=== PATIENT | female | born 1955 | race Asian ===

== ENCOUNTER 2025-06-12 08:42 | Outpatient (AMB) | payer OTHER, SELFPAY ==
--- OUTSIDE RECORDS SUMMARY | 2025-06-12 08:50 | XMS_ITS | Encounter Summary ---
Author Organization [facility] Address [address] [place] [address] Care Team Providers Care Machine Dyer Name Role Phone Raven Mccarthy MD Primary Care Provider [phone] Reason for Visit * Reason Onset Date Comments Request For Order(s) 05/28/2025 [facility] Order # [id number] Encounter Details Date Type Department Care Team (Late st Contact Info) Description 05/28/2025 Telephone Internal Medicine - [place] [address] [facility] [address] [place] [phone] Soheila Gallardo MA Request For Order(s) ([facility] Order # [id number]/) Social History Tobacco Use Types Packs/Day Years Used Date Smoking Tobacco: Never Smokeless Tobacco: Never Alcohol Use Standard Drinks/Week Comments No 0 (1 standard drink = 0.6 oz pur e alcohol) Food Risk Answer Date Recorded Within the past 12 months we worried whether our food would run out before we got money to buy more. Never true 2025 Within the past 12 months th e food we bought just didn't last and we didn't have money to get more. Never true 2025 Interpersonal Safety Answer Date Record ed Physical Abuse 04/06/2025 Verbal Abuse 04/06/2025 Comments Unknown Sex and Gender Information Value Date Recorded Sex Assigned at Female 02/28/2025 3:49 PM EDT Legal Sex Female 10:31 AM EDT Gender Identity Female 02/28/2025 3:49 PM EDT Sexual Orientation Straight 02/28/2025 3: 49 PM EDT documented as of this encounter Progress Notes * Soheila Gallardo MA - 06/04/2025 1:14 PM EDT Scanned into chart and faxed to [facility] [phone] * Soheila Gallardo MA - 05/28/2025 12:37 PM EDT [facility] Order # [id number] Please Sign & documented in this encounter Plan of Treatment Upcoming Encounters Date Type Department Care Team (Late st Contact Info) Description 07/18/2025 9:45 AM EDT Office Visit Internal Medicine - [place] 175 [facility] [address] [place] [phone] Raven Mccarthy MD 175 [facility] [address] [place] [phone] 08/07/2025 2:10 PM EDT Office Visit [facility] [address] [facility] [address] [place] [phone] Adriana Huber NP 300 [facility] [address] [place] [phone] 09/03/2025 2:00 PM EDT Ancillary Procedure Pulmonolgy - [place] 175 [facility] [address] [place] [phone] 09/03/2025 2:45 PM EDT Office Visit Pulmonolgy - [place] 175 [facility] [address] [place] [phone] Danii Cherry MD [address] [address] 10/01/2025 9:00 AM EST Office Visit [facility] Hematology Oncology [address] [place] [phone] Tamear Locke PA [address] [place] [address] documented as of this encounter Goals Goal Patient Goal Type Associated Problems Recent Progress Patient-Stated? Author LTG - 8 visits General No Susan Caban PT Note: Patient reports subjective decrease in low back pain Patient is able to achieve 10 degrees of lumbar extension Slight trigger point to L lumbar multifidi Slight flexibility restriction to L piriformis Patient is independent and compliant with HEP documented as of this encounter Visit Diagnoses Not on filedocumented in this encounter Additional Health Concerns Assessment Noted Time PHQ-9 Depression Total Score: 1 12/06/19 25 8:36 AM EST documented as of this encounter Care Teams Machine Dyer Relationship Specialty Start Date End Date Raven Mccarthy MD [address] [phone] PCP - General Internal Medicine 11/07/14 documented as of this encounter
--- OUTSIDE RECORDS SUMMARY | 2025-06-12 08:50 | XMS_ITS | Clinical Summary ---
Author Organization [facility] Address [address] [place] [address] Care Team Providers Care Assistant Engineer Name Role Phone Unavailable Primary Care Provider Unavailabl e Source Comments PLEASE NOTE, if this patient is a minor, it may be UNLAWFUL to discuss sensitive information that is contained in these records (such as FAMILY PLANNING, MENTAL HEALTH or SUBSTANCE ABUSE) with the minor patient's parent or other person without the patient's specific authorization.[facility] Allergies No known active allergies Medications amoxicillin (AMOXIL) 500 mg capsuleIndicati ons:Infection of tooth Take 1 Cap by mouth 3 (three) times daily 21 Cap 12/28/2017 Active omeprazole (PRILOSEC) [address] capsule TAKE 1 CAPSULE 30 MINUTES BEFORE MORNING MEAL ONCE A DAY NEEDED Active Active Problems No known active problems Social History Tobacco Use Types Packs/Day Years Used Date Smoking Tobacco: Never Smokeless Tobacco: Never Tobacco Cessation:Counseling Given: Not Answered Social Connections Answer Date Recorded Connectedness 0 08/15/2024 Financial Resource Strain Answer Date R ecorded Financial Resource Strain 0 2023 Stress Answer Date Recorded Stress 0 01/17/2024 Physical Activity Answer Date Recorded Physical Activity 0 01/17/2024 Food Insecurity Answer Date Recorded Food 0 08/23/2024 Transportation Needs Answer Date Record ed Transportation 0 01/17/2024 Housing Stability Answer Date Recorded Housing 0 01/17/2024 Safety and Environment Answer Date Edin rded Safety 0 01/17/2024 Utilities Answer Date Recorded Utilities 0 01/17/2024 Employment Answer Date Recorded Stress 0 08/15/2024 Comments Unknown Sex and Gender Information Value Date Recorded Sex Assigned at Not on file Legal Sex Female 11:36 AM PDT Gender Identity Not on file Sexual Orientation Not on file Last Filed Vital Signs Vital Sign Reading Time Taken Comments Blood Pressure 119/76 01/29/2025 9:14 AM EST Pulse 76 01/29/2025 9:14 AM EST Temperature - - Respiratory Rate - - Oxygen Saturation - - Inhaled Oxygen Concentration - - Weight - - Height - - Body Mass Index - - Plan of Treatment Health Maintenance Due Date Last Done Comments Hepatitis B Screening 1957 Hepatitis C Screening 1955 Medicare Annual Wellness Visit 1975 Imm-DTaP/Tdap/Td (1 - Tdap) 1976 Breast Cancer Screening (Mammogram) 1997 CT Colonography 2002 Colonoscopy 2002 Colorectal Cancer Screening 2002 FIT/gFOBT 2002 Fecal DNA 2002 Flexible Sigmoidoscopy 2002 Imm-Pneumococcal 50+ (1 of 1 - PCV) 2007 Imm-Zoster, Recombinant (1 of 2) 2007 Bone Density Screening 2022 Falls Prevention 2022 [id number] ( - season) 2024 Alcohol and Drug Screen 11/28/2024 Depression Annual Screen 11/28/2024 Dental BW 03/31/2025 03/29/2024, 01/18/2024 Dental Examination 03/31/2025 03/29/2024 Dental Perio Charting 03/31/2025 03/29/2024 Dental Prophy 03/31/2025 03/29/2024 Imm-Influenza (#1) 2025 Hypertension Screening (#1) 01/29/2026 Tobacco Screening 01/29/2026 01/29/2025 Diabetes Screening 01/11/2028 01/11/2025, 0 12/06/2024, 12/06/2024, Additional history exists Lipid Screening 02/02/2029 02/03/2024 Dental FMX/Pano 03/31/2029 03/29/2024, 02/08/2024 Procedures Procedure Name Priority Date/Time Associated Diagnosis Comments INTRAORAL - COMP SERIES OF RADIOGRAPHIC IMAGES Routine 03/29/2024 9:40 AM EDT Encounter for dental examination Retained tooth root Caries PROPHYLAXIS - ADULT Routine 03/29/2024 9 :40 AM EDT Encounter for dental examination Caries COMP ORAL EVALUATION - NEW/ESTABLISHED PATIENT Routine 03/29/2024 9:40 AM EDT Encounter for dental examination Caries from Last 3 Months or Most Recently Relevant to Health Maintenance Insurance [facility]
--- OUTSIDE RECORDS SUMMARY | 2025-06-12 08:50 | XMS_ITS | Data Portability ---
Author Organization [employer] [facility], [facility] Address [address] [place] [address] Care Team Providers Care Housecleaner Floor Name Role Phone [facility] Referring Provider Assessment Encounter Date Assessment Date Assessment LastModified by Organization Details LastModified Time 01/19/2024 01/19/2024 I provided real -time medical direction via phone for this encounter, and was available for additional phone based assistance as needed. I have reviewed and agree with the Assessment and Plan as documented by the Air Commodore. We discussed the diagnostic uncertainty of home visits and the risk associated with this. In this case the patient and I felt this to be an acceptable and reasonable amount of risk given the benefit of avoiding an ED visit. The patient/family given the opportunity to ask questions. Advised needs close follow-up with PCP.. If develops CP/severe SOB/turning blue/severe abdominal pain/uncontrolle d n/v/d or black/bloody emesis or stool/ AMS/ syncope/ hi fever unresponsive to APAP to call 911- verbalized understanding of instructions [email or web address] Not available 01/19/2024 17:11:43 Plan of Treatment Reminders Order Date Submit Date Provider Last Modified By Organization Details Last Modified Time Details Appointments None recorded. Lab BMP, serum or plasma 2023 024 [email or web address] 0 [facility], [address] [place] [address], [id number] 4 17:19:46 rapid SARS CoV 2 Ag, QL IA, respiratory specimen 2023 024 [email or web address] [address], [phone] 4 17:28:55 rapid flu (A+B) 2023 024 [email or web address] [address], [address] 4 17:28:53 urinalysis, dipstick 2022 023 [email or web address] [facility], [address] [place] [address], [id number] 3 16:18:14 Referral None recorded. Procedures None recorded. Surgeries None recorded. Imaging None recorded. Medication Orders ondansetron HCl (PF) 4 mg/2 mL injection solution 2023 024 [email or web address] 0 Not available 4 17:19:46 ondansetron 4 mg disintegrat ing tablet 2023 024 [facility] #[id number], [address] [place], [address], 4 17:19:59 lactated Ringers intravenous solution 2023 024 [email or web address] 0 Not available 4 17:19:46 loperamide 2 mg capsule 2023 024 [email or web address] 0 Not available 4 17:19:46 Patient TargetsNo targets recorded. Patient InstructionsNo instructions recorded. Reason for Referral None Reported. Results Created Date Observation Date Name Description Value Unit Range Abnormal Flag Note LastModifiedBy Organization Detail LastModifiedTime 10/25/20 23 10/25/2023 urina lysis , dipst ick Leukocytes neg Not Available [facility] - [address], [phone] 10/25/2023 16:18:00 10/25/20 23 10/25/2023 urina lysis , dipst ick Nitrite negati ve Not Available Main - [facility] [address], [address] 10/25/2023 16:18:00 10/25/20 23 10/25/2023 urina lysis , dipst ick Protein trace Not Available Main - [facility] [address], [address] 10/25/2023 16:18:00 10/25/20 23 10/25/2023 urina lysis , dipst ick Blood neg Not Available Main - [facility] [address], [address] 10/25/2023 16:18:00 10/25/20 23 10/25/2023 urina lysis , dipst ick Ketone neg Not Available Main - [facility] [address], [address] [place] [address] 10/25/2023 16:18:00 01/19/20 24 01/19/2024 rapid flu (A+B) Flu negati ve Not Available Main - Inst ed [address] [place] [address], [address] [place] [address] 01/19/2024 17:28:33 01/19/20 24 01/19/2024 rapid SARS CoV 2 Ag, QL IA, respi rator y speci men rapid SARS CoV 2 Ag, QL IA, respiratory specimen negati ve Not Available Main - [facility] ed [address] [place] [address], [address] [place] [address] 01/19/2024 17:28:28 01/19/20 24 01/19/2024 BMP, serum or plasm a BUN 14 Not Available Main - [facility] [address], [address] [place] [address] 01/19/2024 17:12:11 01/19/20 24 01/19/2024 BMP, serum or plasm a Ca Ionize d 1.12 Not Available Main - [facility] ed [address] [place] [address], [address] [place] [address] 01/19/2024 17:12:11 01/19/20 24 01/19/2024 BMP, serum or plasm a CI- 97 Not Available Main - [facility] [address], [address] [place] [address] 01/19/2024 17:12:11 01/19/20 24 01/19/2024 BMP, serum or plasm a CRE 1 Not Available Main - [facility] [address], [address] [place] [address] 01/19/2024 17:12:11 01/19/20 24 01/19/2024 BMP, serum or plasm a GLU 97 Not Available Main - [facility] [address], [address] [place] [address] 01/19/2024 17:12:11 01/19/20 24 01/19/2024 BMP, serum or plasm a K+ 3.7 Not Available Main - [facility] [address], [address] [place] [address] 01/19/2024 17:12:11 01/19/20 24 01/19/2024 BMP, serum or plasm a Na+ 134 Not Available Main - [facility] [address], [id number] 01/19/2024 17:12:11 01/19/20 24 01/19/2024 BMP, serum or plasm a tCO2 23 Not Available Main - Ins [address], [address] 01/19/2024 17:12:11 Result Notes None recorded. Medical Equipment None Reported. Allergies No known drug allergies Medications Name Sig Start Date Stop Date Status Note LastModified by Organization Details LastModified Time sulfasalazin e 500 mg tablet TAKE 2 TABLETS BY MOUTH EVERY DAY active Not Available Not Available No t Available loperamide 2 mg capsule Take 1 capsule by oral route. 2023 active Not Available Not Available Not Avai lable meloxicam 15 mg tablet TAKE 1 TABLET BY MOUTH EVERY DAY WITH SUPPER NEEDED FOR 90 DAYS active Not Available Not Available No t Available lactated Ringers intravenous solution Inject 1000 mL by intravenous route. 2023 active Not Available Not Available Not Avai lable leflunomide 20 mg tablet TAKE 1 TABLET BY MOUTH EVERY DAY FOR 90 DAYS active Not Available Not Available No t Available lidocaine 5 % topical patch PLACE 1 PATCH ONTO SKIN EVERY 24 HOURS FOR NO MORE THAN 12 HOURS IN ANY 24 HOUR PERIOD FOR 28 DAYS active Not Available Not Available No t Available valsartan 320 mg tablet TAKE 1 TABLET BY MOUTH EVERY DAY active Not Available Not Available No t Available omeprazole 20 mg capsule,aminta yed release TAKE 1 CAPSULE 30 MINUTES BEFORE MORNING MEAL ONCE A DAY NEEDED active Not Available Not Available No t Available ondansetron 4 mg disintegrati ng tablet Place 1 tablet every 8 hours by translingua l route as needed. 2023 active Not Available Not Available Not Avai lable calcium 600 mg (as carbonate)-v itamin D3 10 mcg (400 unit) tablet TAKE 1 TABLET BY MOUTH TWICE A DAY active Not Available Not Available No t Available ondansetron HCl (PF) 4 mg/2 mL injection solution Take 4 mg by injection route. 2023 active Not Available Not Available Not Avai lable Vitals Date Recorded Heart rate Body height Provider Name and Address Organization Details Last Updated DateTime 01/19/2024 62 /min 162.56 cm Jessica Staton MD [address] [place] [address],[address], [place], [address], [place] - [employer] [facility] 01/19/2024 17:08:47 Date Recorded Body temperature Respiratory rate Oxygen saturation Oxygen saturation in Arterial blood by Pulse oximetry Systolic And Diastolic Provider Name and Address Organization Details Last Updated DateTime 4 98.8 [degF] 22 /min 94 % 94 % 104/58 mm[Hg] Not Available [facility] 4 15:04:30 Date Recorded Respiratory rate Oxygen saturation Oxygen saturation in Arterial blood by Pulse oximetry Body weight Heart rate Body height Body temperature Systolic And Diastolic Provider Name and Address Organization Details Last Updated DateTime 3 18 /min 97 % 97 % 61920.9 6 g 69 /min 162.56 cm 97.6 [degF] 117/79 mm[Hg] Not Available [facility] 3 15:34:37 Social History None recorded. Functional Status None recorded. Mental Status None recorded. Family History Nothing Reported. Medical History No medical history recorded. Gynecological HistoryNo gynecological history recorded. Obstetrics History GPAL:G 0 P 0 0 0 0 Past Encounters Encounter ID Performer Location Encounter Start Date Encounter Closed Date Diagnosis/Indication Diagnosis SNOMED-CT Code Diagnosis ICD10 Code Diagnosis Note [id number] Angela Jones MD [facility] - [address] [address] 10/25/2023 15:34:33 10/25/2023 22:41:48 Viral syndrome 497950886 B34.9 Evaluation in the field was performed by my lead generation specialist colleague, as noted above, I provided real-time direction and supervisio n for this visit. 68yo F recently evaluated in ED for report of rhinorrhea , malaise, and fevers with negative work up (per family report diagnosed w/ viral URI) seen today for concern of facial swelling. Pt endorsing ongoing rhinorrhea , malaise, and new diarrhea and single episode of vomiting. On lead generation specialist eval VS all wnl, exam w/o evidence of facial swelling, no sinus TTP, clear lungs, no abd TTP. Denies new meds, other symptoms c/w anaphylaxi s. Symptom constellat ion most c/w viral illness, possible mild periorbita l edema not noticeable by lead generation specialist iso mild conjunctiv itis. Urine dip w/ trace protein not c/w nephrotic syndrome. No facial TTP to suggest serious bacterial infection sinus or adjacent structures . Family declines POC testing for COVID, flu given just done in ED. Given pt declines nausea no symptomati c relief given. Counseled on expected course of viral illness and encouraged to seek medical attention if sx not improving or worsening. We discussed the diagnostic uncertaint y of home visits and the risk associated with this. In this case, the patient and I felt this to be an acceptable and reasonable amount of risk given the benefit of avoiding an ED visit. We discussed the need to seek care urgently/e mergently in the setting of any new or worsening serious symptoms, shortness of breath, cough, chest pain, fever. Jessica Staton MD [facility] - [facility] [address] [place] [address] 01/19/2024 15:04:21 01/19/2024 21:37:34 Nausea, vomiting and diarrhea 7171635 R11.2 R19.7 npo since yesterday- patient on Bactrim 3 times a week for 90 days since November 08 2023-she reports it is for her bones unsure if she had prior osteo patient is not knowledgea ble about PMH and I do not have access to prior records.No known sick contacts. This could be viral gastroente ritis. Labs look good. We do not have the ability to do stool specimens and the concern with diarrhea on antibiotic s is the developmen t of C. difficile so cannot repeat doses of loperamide until testing is done to avoid developing megacolon/ bowel obstructio n-advised need for close follow-up with PCP-to call this afternoon or tomorrow.. They verbalized understand ing Patient feeling better after IV fluids and Zofran IV-Rx for Zofran sent to the pharmacy. Now drinking apple juice and h20 -advised clear liquids and to stay hydrated for 24 hours and then begin brat diet/ medic reviewed diet Offered Tylenol for her back pain. Patient and family declined stating they have some at home and they can take their own. Patient has been taking ibuprofen, I suggested while ill she should avoid the ibuprofen as it could cause GI upset. Patient is on Leflunomid e -as anti-infla mmatory was ketorolac is contraindi cated. Health Concerns Section Related Observation LastModified by Organization Detai ls LastModified Time None Recorded Concern Status LastModified by Organization Details LastModified Time None Recorded Advance Directives Directive None Recorded Payers Insurance Date Sequence Insurance Name Policy Number Policy Avilez Covered Member ID Avilez Member ID Guarantor Name 01/19/2024 1 [facility] - DOS ON OR AFTER 2023 - DUAL ELIGIBLE - CARE HOME OPTIONS AND ONE CARE (MEDICARE REPLACEMENT/ADV ANTAGE - HMO) Tian Weller [id number] Tian Juarez Weller Notes Date Note Type Note Provider Name and Address Organization Details Recorded Time 10/25/2023 text/html [facility] Nursing Assessment: Reason For Request: Pt daughter calling to report low BP + not feeling well>mbr went to the ED and tested everything was normal>daughter is noticing some face swelling and is unsure if her bp is the cause Chief Complaints: Edema, Weakness/Lethargy Allergies: No Known Comments: Member's daughter called to report increased fatigue and new facial swelling. Member identified via name/. Member went to ER yesterday for fatigue and low BP. There they had all the tests and didn't find anything wrong and sent her home. Face swelling started on Tuesday, got better and then worse again. Daughter reports she can hardly see member's eyes. Member denies SOB, trouble breathing, and trouble swallowing. Denies swollen/itchy tongue. Eating and drinking as usual. Symptoms include headache and itchy eyes. No recent new medications or food. According to member- ER did not notice facial swelling. Denies chest pain. Took BP- currently 103/68. HR 77. Denies dizziness. Member is Latvian speaking- some ethiopian but will need an dry finisher. Daughter can be called during the visit. Reviewed warning signs and reasons to call 911 with member and daughter - both verbalize understanding. Shaan Macario RN .................. .................. .................. .................. .................. .................. .................. ............... Air Commodore Note From Lydia Rivera: Sent to a call for a pt complaining facial swelling, fatigue and hypotension. SC8 arrives on scene, pt is alert and oriented, airway is patent. Pt speaks Latvian and her daughter serves as apprentice embalmer via phone. Pt complains of fox, itchy eyes, runny nose with clear mucus, slight productive cough with white mucus, body pain, and fatigue x 2-3 days. Pt also complains of facial swelling since yesterday, one episode of vomit, and 3 episodes of diarrhea today. Pt denies dizziness, sinus pain, sore throat, nausea, blood in vomit, cp, sob, abd pain, fever, or loc. Pt was evaluated in ED yesterday and diagnosed with upper respiratory infection. Pt states she had a neg Covid and Flu test yesterday in ED. BP:117/79, P:69, RR:18, SpO2:97% RA, T:97.6; Head: no sinus tenderness, slight facial edema noted; Lung sounds: clear bilaterally; Abdomen: soft, non-tender, no distention; Back: unremarkable; Extremities: unremarkable; Skin: pink, warm, dry; [facility] consulted and orders urine dip. Urine sample obtained; urine dip: results uploaded to [facility]; Pt and family advised that pt should rest, stay hydrated, and continue symptomatic treatment. Pt advised to contact [facility] if symptoms worsen. Red flags discussed. Pt has no further questions. .................. .................. .................. .................. .................. .................. .................. ............... Disposition: Fulfilled Angela Jones MD [address] [facility],[address], [place], [address], [employer] 10/25/2023 17:29:50 01/19/2024 text/html [facility] Nurse Triage Notes (Nanda Dotson): Reason For Request: Pt's FIBERGLASSER reporting fatigue/tiredness> n/v/d>symptoms going on 5 days. Chief Complaints: Weakness/Lethargy, Nausea/Vomiting PMH: Hypertension Allergies: No Known Comments: Increased fatigue over the last 2 days. Reported member having vomiting and diarrhea that started last night. Member having dizziness and headaches. Member c/o back pain. History of chronic back pain but is worse that usual. .................. .................. .................. .................. .................. .................. .................. ............... Air [employer]ore Note From Jerrod Miller: Dispatched to above address for flu like symptoms. On arrival patient 68 y/o F, met SC8 at the door, AOX4, airway patent, speaking in full sentences, good color, in no apparent distress. Patient mostly Latvian speaking, family on phone to translate. Patient reports malaise and general fatigue for 2-3 days, began having nausea vomiting diarrhea and chills last night, denies blood in stool or vomit, reports R sided crampy abdominal pain, general malaise and fatigue. Patients vital signs checked. Orthostatic vitals checked. POC Flu and Covid-19 test checked both negative. Secondary assessment, pupils PERRL, airway patent, no JVD, trachea midline, equal chest rise and fall, Rales auscultated in R lower lobe otherwise clear lung sounds, abdomen soft non tender, no signs of trauma, good radial pulse, skin pink warm and dry. [facility] contacted spoke with Dr. Staton, advised of current situation, advised check chem 8, administer loperamide Zofran and 1L lactated ringers. IV access established, 18g R AC, blood draw preformed from IV site, Chem 8 checked, numbers per attached photo. Patient started on lactated ringers infusion, administered 4mg Zofran IV and 2mg Loperamide PO. Consulted with [facility], advised patient education and red flag warnings, follow up with PCP as soon as possible. Patient advised of red flags, advised to increase fluid intake, clear fluids for 24hrs and BRAT diet to follow. Patient reports reduction in nausea. Patient has no additional questions or concerns at this time, reports she will call PCP today. SC8 clear. EOR. .................. .................. .................. .................. .................. .................. .................. ............... Disposition: FulfilledSEGMD: Patient reports 2-3 bouts of nausea vomiting and diarrhea with crampy right-sided abdominal pain but without hematemesis, melena or hematochezia. She has had no fever, but did have chills. She has been on Bactrim 3 times a week since November 08, 2023. No sick contacts. She has been taking ibuprofen for her low back pain she has not had any Tylenol but they do have it in the house. She feels lightheaded when she stands and c/o myalgias, fatigue and malaise. No focal neuro signs. She denies any cough cold URI symptoms. She denies any UTI symptoms. Jessica Staton MD [address] [facility],[address], [place], [address], [employer] 01/19/2024 17:30:15 OBGyn Episode No OBEpisode recorded.
--- NOTE | 2025-06-12 09:23 | A.OFFVIS_ITS ---
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 She was taking gabapentin twice a day for symptomatic relief of pain related to neuropathy and stated that it was helping without any side-effects or complications. She was happy. [facility] Medical History (Updated 06/12/25 @ 09:25 by Leoncio Ren MD) HLD (hyperlipidemia) Asthma Hypertension Paresthesia of skin Rheumatoid arthritis Peripheral neuropathy Review of Systems Const Details: Constitutional:?No fever, chills, fatigue, weight loss, or night sweats. HEENT:?No headache, vision changes, hearing loss, nasal congestion, sore throat. Neurological:?No dizziness, syncope, seizures, numbness, tingling, weakness, tremors, memory loss. Psychiatric:?No anxiety, depression, mood swings, sleep disturbance, or hallucinations. Endocrine:?No heat/cold intolerance, polydipsia, polyuria, or hair/skin changes. Hematologic/Lymphatic:?No easy bruising, bleeding, or lymphadenopathy. Integumentary (Skin):?No rash, lesions, itching, or color changes. ? Physical Exam Neuro Other: Mental Status: Alert and oriented to person, place, and time. Normal attention. Normal spontaneous speech, fluency, and comprehension. No obvious issues with mood and memory. Affect is appropriate. Cranial Nerves: CN II: Visual giron full to confrontation, visual acuity intact. CN III, IV, : Pupils equal, round, reactive to light and accommodation. Extraocular movements are normal. CN V: Facial sensation is normal. CN VII: Facial movements symmetrical. CN VIII: Hearing intact to bedside conversation is normal. CN IX, X: Palate elevates symmetrically. CN XI: Shoulder shrug and head turn symmetrical. CN XII: Tongue midline without atrophy or fasciculations. Extrapyramidal: Full facial expressions and blinking. No rigidity. Movements are appropriate with no tremor or abnormality. Speech: Normal; no dysarthria or tremor. Assessment & Plan Assessment & Plan (1) Peripheral neuropathy: Comment: Meds tried: gabapentin NCV/EMG LE Moderately severe axonal sensory and motor peripheral neuropathy. 05/21/24. Code(s): G62.9 - Polyneuropathy, unspecified Category: Medical Qualifiers: Peripheral neuropathy type: polyneuropathy associated with underlying disease Qualified Code(s): G63 - Polyneuropathy in diseases classified elsewhere Plan Impression: Peripheral neuropathy with underlying rheumatoid arthritis Recommendations: Gabapentin 300 mg once or twice a day for symptomatic relief of pain related to neuropathy. Medications: New gabapentin 300 mg PO BID 180 caps 1RF Coding Level of Care Code Tele Est Pt Level 4 (09829) Diagnoses Polyneuropathy associated with underlying disease G63 Peripheral neuropathy type: polyneuropathy associated with underlying disease
== END 2025-06-12 09:31 | disposition home or self-care (01) ==
LOC: HO.HSM 08:43
PROVIDERS: PCP Internal Medicine; Visit Provider Psychiatry & Neurology Neurology
DX: G62.9 Polyneuropathy, unspecified (principal)
CPT/HCPCS: 99214

== ENCOUNTER → 2025-06-12 08:42 | Outpatient (BNVA) | payer OTHER, SELFPAY | PROVIDERS: PCP Internal Medicine; Visit Provider Psychiatry & Neurology Neurology | DX: G62.9 Polyneuropathy, unspecified (principal); M06.9 Rheumatoid arthritis, unspecified | CPT/HCPCS: 99212 ==

== ENCOUNTER 2025-09-24 09:04 | Outpatient (REF) | payer OTHER, SELFPAY ==
--- NOTE | 2025-09-24 | EMG_ITS ---
Chief complaint: Left hand pain and numbness Reason for referral:M79.642 Left hand pain, Rule out Carpal tunnel syndrome Referred by: Dami Camacho MD Procedure done: NCS and EMG of left upper extremity Left median and ulnar motor studies were performed. Left median and ulnar mixed sensory studies, median and lateral antecubital brachial sensory studies and radial sensory study was performed. EMG needle examination was performed. Findings: Left median motor distal latencies was moderately prolonged with conduction velocity in 30s. Amplitude was intact. Left median mixed sensory response was absent. Ulnar mixed sensory study revealed slightly delayed distal latencies and borderline conduction velocity. Ulnar motor study was normal. Other sensory studies were normal. 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 There was also indication of an underlying probably axonal peripheral neuropathy [place] [id number] [facility]
--- NOTE | 2025-09-24 | EMG_ITS ---
Chief complaint:?M79.642 Left hand pain Reason for referral: Left hand and wrist pain/numbness Referred by:?Dami Camacho MD Procedure done: Left upper extremity Left median and ulnar motor studies were performed. Left median and ulnar mixed sensory studies were performed. Left radial sensory and median and lateral antecubital brachial sensory studies were performed and paraspinals were tested with a needle. Findings: Left median motor distal latencies was moderately prolonged with mildly slow conduction velocity. Left median mixed response was absent. Otherwise no significant abnormality was noted. Impression: [id number] left median neuropathy across carpal tunnel [place] [id number] 1 extremity MTDD
--- OUTSIDE RECORDS SUMMARY | 2025-09-24 10:10 | XMS_ITS | Encounter Summary ---
Author Organization [facility] Address [address] [place] [address] Care Team Providers Care Sales Project Coordinator Name Role Phone Raven Mccarthy MD Primary Care Provider [phone] Reason for Visit * Reason Onset Date Comments DME 09/23/2025 Encounter Details Date Type Department Care Team (Late st Contact Info) Description 09/23/2025 Telephone Internal Medicine [facility] [address] [facility] [address] [place] [phone] Raven Mccarthy MD [address] [place] [phone] Social History Tobacco Use Types Packs/Day Years [...] Safety Answer Date Record ed Physical Abuse Unrecognized value 08/05/2025 Verbal Abuse Unrecognized value 08/05/2025 Comments No Sex and Gender Information Value Date Recorded Sex Assigned at Female 02/28/2025 3:49 PM EDT Legal Sex Female 10:31 AM EDT Gender Identity Female 02/28/2025 3:49 PM EDT Sexual Orientation Straight 02/28/2025 3: 49 PM EDT documented as of this encounter Progress Notes * Марина Solomon - 09/23/2025 9:59 AM EDT Name of Product: shower chair Specific information about product # Needed 1 Reason patient is asking for this supply? Replacement, Frequent falls Have you received this supply before? If yes , when?: yes. Has Patient been seen in the last 6 months yes If NO, Please book appt before DME can be ordered Have you discussed the need for this supply with a provider at a recent visit? no If yes, with who and when? No Child Life Appt necessary When completed, SHIPPING ADDRESS: [address] [place] [address] Have you told the patient it will take 7-10 days for completion of this request? Yes documented in this encounter Plan of Treatment Upcoming Encounters Date Type Department Care Team (Late st Contact Info) Description 10/01/2025 9:00 AM EST Office Visit [facility] Hematology Oncology [address] [place] [phone] Tamera Locke PA [address] [place] [address] 10/29/2025 9:45 AM EST Office Visit Internal Medicine [facility] [address] [phone] Raven Mccarthy MD [address] [place] [phone] 03/05/2026 8:45 AM EDT Office Visit Pulmonology - [facility] [address] [phone] Danii Cherry MD [address] [place] [phone] documented as of this encounter Goals Goal [...] documented as of this encounter Care Teams Sales Project Coordinator Relationship Specialty Start Date End Date Raven Mccarthy MD [address] [place] [phone] PCP - General Internal Medicine 11/07/14 documented as of this encounter
--- OUTSIDE RECORDS SUMMARY | 2025-09-24 10:11 | XMS_ITS | Clinical Summary ---
Author Organization [facility] Address [address] [place] [address] Care Team Providers Care Photographic Editor Name Role Phone Gay Mccarthy MD Primary Care Provider [phone] Allergies No known active allergies Medications omeprazole (PriLOSEC) [address] capsule Take 1 capsule (20 mg total) by mouth 1 (one) time each day. 4 Active fluticasone-salm eterol (Wixela Inhub) 250-50 mcg/dose diskus inhaler Inhale 1 puff by mouth 2 (two) times a day. Rinse mouth with water after use to reduce aftertaste and incidence of candidiasis. Do not swallow. 3 each 3 5 026 Active albuterol HFA (PROAIR HFA ; PROVENTIL HFA ; VENTOLIN HFA) 90 mcg/actuation inhaler Inhale 2 puffs by mouth every 6 (six) hours if needed for wheezing or shortness of breath. 3 each 3 5 026 Active glipiZIDE (Glucotrol XL) 5 mg 24 hr tablet Take 1 tablet (5 mg total) by mouth 1 (one) time each day. Do not crush, chew, or split. 90 each 3 5 Active atorvastatin (LIPITOR) 40 mg tablet TAKE 1 TABLET BY MOUTH EVERY DAY 90 tablet 1 5 Active blood-glucose meter miscIndications: Type 2 diabetes mellitus without complication, without long-term current use of insulin ([facility] V24, [facility] V28) Use daily or as directed for monitoring of diabetes. 1 each 5 026 Active ketotifen fumarate (Zaditor) 0.035 % ophthalmic solution Administer 1 drop into both eyes 2 (two) times a day. 10 mL 1 5 Active magnesium oxide 400 mg magnesium capsule Take 1 capsule by mouth at bedtime. 90 capsule 3 5 Active predniSONE (DELTASONE) 10 mg tablet Take 1 tablet (10 mg total) by mouth 1 (one) time each day. Take 1 Tablet by mouth daily. May take second tablet as needed for pain 5 Active blood-glucose meter kit Use daily or as directed for monitoring of diabetes. 1 each 5 Active glucose blood test strip Use as instructed 100 each 5 Active lancets lancets Check blood sugar 4 times a day or as directed. 200 each 5 Active ferrous sulfate 325 mg (65 mg iron) EC tablet Take 1 tablet (325 mg total) by mouth every other day. Do not crush, chew, or split. 45 each 5 Active gabapentin (NEURONTIN) 300 mg capsule Take 1 capsule (300 mg total) by mouth 2 (two) times a day. 5 Active fluticasone-salm eterol (Wixela Inhub) 250-50 mcg/dose diskus inhaler Inhale 1 puff by mouth 2 (two) times a day. Rinse mouth with water after use to reduce aftertaste and incidence of candidiasis. Do not swallow. 1 each 12 5 026 Active aspirin 81 mg EC tablet TAKE 1 TABLET BY MOUTH EVERY DAY 90 tablet 2 5 Active calcium carbonate-vitami n D 600 mg-10 mcg (400 unit) per tablet TAKE 1 TABLET BY MOUTH TWICE A DAY 180 tablet 4 5 Active loratadine (CLARITIN) 10 mg tablet TAKE 1 TABLET BY MOUTH 1 TIME EACH DAY. 90 tablet 1 5 Active polyethylene glycol (Golytely) 236-22.74-6.74 -5.86 gram solution Take 4L by mouth once for one dose. May substitue any PEG. Starting at 2PM the day before your procedure drink 1 8oz glasses at your own pace until you complete half of the gallon. Finish 2nd half of the gallon at 8PM. 4000 mL 5 Active bisacodyL (DULCOLAX) 5 mg EC tablet Take 2 tablets by mouth right before beginning bowel prep. See instructions provided by the office 2 tablet 5 Active nutritional supplement-fiber liquidIndication s:Type 2 diabetes mellitus without complication, without long-term current use of insulin (CMS/HCC V24, CMS/HCC V28) Take 1 each by mouth 2 (two) times a day. 1500 mL 11 5 Active valsartan (DIOVAN) 80 mg tabletIndication s:Benign essential hypertension Take 1 tablet (80 mg total) by mouth 1 (one) time each day. 90 tablet 2 5 Active fluticasone-salm eterol (Wixela Inhub) 250-50 mcg/dose diskus inhaler Inhale 1 puff by mouth 2 (two) times a day. Rinse mouth with water after use to reduce aftertaste and incidence of candidiasis. Do not swallow. 3 each 3 5 Active albuterol HFA (Ventolin HFA) 90 mcg/actuation inhaler Inhale 2 puffs by mouth every 6 (six) hours if needed for wheezing. 3 each 3 5 026 Active Active Problems Problem Noted Date Diagnosed Date Prepatellar bursitis, left knee 03/01/2025 Cellulitis of left knee 02/28/2025 Lumbar disc herniation with radiculopathy 2024 Assessment & Plan (04/01/2025 1:59 PM EDT): I discussed the MRI finding with Ms. Espinosa and she feels that the back pain that was radiating down the back of her leg is about the same but right now her walking and activity tolerance are significantly influenced by her left knee surgery. She has had only 1 PT visit since her knee replacement and would like to continue to see how much that improves but there is no before having to decide about more surgery. I agree since there is no left foot weakness. She can follow-up with us to discuss it further after she has pleated the rehab for her left knee replacement and can reassess the residual symptoms. She continues to wear a right AFO for pre-existing dorsiflexion weakness. She feels that 1 leg is shorter than the other which is not apparent when she is wearing the AFO and shoes however, at home when the AFO is off, she feels unbalanced and asked for a lift for her flip-flop. Through the park interpreter, I explained that that is not possible and if necessary, she should wear her shoes indoors. Assessment & Plan (01/23/2025 3:40 PM EST): Ms. Espinosa describes 2 months of severe pain down the back of the left leg. She says the back pain started before that. She admits to ongoing right sided dorsiflexion weakness since 2019. Her AFO brace broke so I will give her a prescription for a new one. Her MRI of the lumbar spine from [facility] on 01/01/25 reveals a large left-sided disc herniation with caudal migration compressing the left S1 nerve root. We talked about surgery for this but she would like to see if it gets better with time. I gave her a prescription for physical therapy. We talked about steroids but she is diabetic and so she will continue on Celebrex and gabapentin. She will follow-up with Dr. Lyle in 4 to 6 weeks. Benign essential hypertension 10/09/2024 Assessment & Plan (08/07/2025 3:20 PM EDT): Her blood pressure is elevated during today's exam with a wrist systolic of 150. There has been some confusion as the patient discontinued her valsartan as she thought her PCP asked her to do this. I reviewed her most recent PCP note from 2 weeks ago and it states that she is to continue on valsartan. Subsequently, she will restart her valsartan 80 mg. Goal blood pressure less than 130/80. Orders: valsartan (DIOVAN) 80 mg tablet; Take 1 tablet (80 mg total) by mouth 1 (one) time each day. Assessment & Plan (02/01/2025 3:18 PM EST): Well-controlled during today's exam. She will continue on her current medications. Her blood pressure is actually a little bit soft. We can consider decreasing her metoprolol after her stress test to see if this does help with her fatigue. NSTEMI (non-ST elevated myoc ardial infarction) ([facility] V24, [facility] V28) 06/13/2024 Assessment & Plan (08/07/2025 3:20 PM EDT): Patient denies any symptoms reminiscent to those prior to her NSTEMI. She has not noticed a decline in her activity tolerance over the past 6 months. She continues to feel well. She will continue on statin and aspirin therapy. Instructed to call 911 or go to the emergency room should the patient begin to experience chest pain or pressure lasting greater than 10 minutes does not resolve with rest. CAD (coronary artery disease) 06/13/2024 Overview (09/10/2024): Last Assessment & Plan: Denies any anginal symptoms. States compliance with her medications. She will continue on aspirin, Brilinta, statin and beta-abdon. Instructed to call 911 or go to the emergency room should the patient begin to experience chest pain or pressure lasting greater than 10 minutes does not resolve with rest. We will update echocardiogram. Patient does complain of episodes of lower extremity edema however appears to be euvolemic upon exam today. Her PCP trialed her on Lasix with good effect. We discussed continuing this on an as-needed basis for swelling and weight gain. I have asked the patient to call our office should she feel she is taking this regularly in order to control symptoms outlined above. I have given her a slip to have BMP drawn. Assessment & Plan (02/01/2025 3:18 PM EST): Patient endorses significant fatigue and breathlessness with minimal exertion which has significantly worsened over the past 3 months. She denies any overt chest pain, left arm pain, jaw pain, nausea or diaphoresis. She does state compliance with her medications including aspirin, Brilinta, metoprolol and statin therapy. I have ordered nuclear stress testing to further evaluate for any further evidence of ischemia. This will be likely a pharmacologic nuclear stress test as the patient is ambulating today with a cane. Instructed to call 911 or go to the emergency room should the patient begin to experience chest pain or pressure lasting greater than 10 minutes does not resolve with rest. Orders: Nuclear stress test with myocardial perfusion; Future Abnormal TSH 03/01/2024 Hyperlipidemia 02/14/2018 Overview (09/10/2024): Last Assessment & Plan: Last fasting lipid profile revealed an LDL of 44. This is at goal of 55 in the setting of coronary artery disease continue current dose of statin and be mindful of dietary fat intake. Assessment & Plan (08/07/2025 3:20 PM EDT): Continue current dose of Lipitor 40 mg to be mindful of dietary fat intake. Goal LDL less than 70 however ideally closer to 55. Can consider updating fasting lipid profile prior to her next in office visit. Assessment & Plan (02/01/2025 3:18 PM EST): Continue current dose of statin therapy. LDL at goal of less than 70. Assessment & Plan (12/07/2024 9:28 PM EST): Orders: CBC and differential; Future Iron and TIBC; Future Ferritin; Future Thyroid stimulating hormone with reflex to free t4 and free t3; Future Hemoglobin A1c; Future Other spondylosis with myelopathy, cervical [place] on 02/14/2018 Overview (09/10/2024): Comments: F/B Dr. Coates Prediabetes 10/29/2017 Assessment & Plan (12/07/2024 9:28 PM EST): Orders: CBC and differential; Future Iron and TIBC; Future Ferritin; Future Thyroid stimulating hormone with reflex to free t4 and free t3; Future Hemoglobin A1c; Future Osteopenia 10/25/2017 Rheumatoid arthritis ([facility] V24, [facility] V28) 10/14/2017 Asthma 05/04/2017 Peripheral neuropathy 01/13/2016 Varicose veins of legs 02/21/2014 GERD (gastroesophageal reflux disease) 3 Resolved Problems Problem Noted Date Diagnosed Date Resolved Date Acute hypoxemic respiratory failure ([facility] V24, [facility] V28) 04/05/2025 2025 Encounters Date Type Department Care Team Description 09/23/2025 Telephone Internal Medicine - [place] [address] [facility] [address] [place] [phone] Gay Mccarthy MD 09/03/2025 2:45 PM EDT Office Visit Pulmonology - [place] [address] [facility] [address] [place] [phone] Danii Cherry MD Moderate persistent asthma, unspecified whether complicated (Primary Dx); ILD (interstitial lung disease) ([facility] V24, [facility] V28); Chronic cough 09/03/2025 2:00 PM EDT Ancillary Procedure Pulmonology - [place] [address] [facility] [address] [place] [phone] ILD (interstitial lung disease) ([facility] V24, [facility] V28) 08/07/2025 2:10 PM EDT Office Visit [facility] [address] [facility] [address] [place] [phone] Adriana Huber NP Benign essential hypertension (Primary Dx); NSTEMI (non-ST elevated myocardial infarction) ([facility] V24, [facility] V28); Hyperlipidemia, unspecified hyperlipidemia type 08/05/2025 1:21 PM EDT Anesthesia Event [facility] [address] [place] [phone] Danielle Miller MD 08/05/2025 12:19 PM EDT - 08/05/2025 11:59 PM EDT Hospital Encounter [facility] [address] [place] [phone] Jesse Caruso MD Hayes, Brett L, CRNA Freeman, Katharine O, MD Iron deficiency anemia, unspecified iron deficiency anemia type Discharge Disposition: Home or Self Care 07/18/2025 9:45 AM EDT Office Visit Internal Medicine [address] [place] [address] Gay Mccarthy MD Hyperlipidemia, unspecified hyperlipidemia type (Primary Dx); Rheumatoid arthritis, involving unspecified site, unspecified whether rheumatoid factor present ([facility] V24, [facility] V28); Type 2 diabetes mellitus without complication, without long-term current use of insulin ([facility] V24, [facility] V28) 07/18/2025 Telephone Internal Medicine [facility] [address] [facility] [address] [place] [address] Gay Mccarthy MD from Last 3 Months Immunizations Immunization Administration Dates Next Due Influenza Quadravalent, 0.5m l (Fluzone High-dose) 65yo and older 08/23/2022 PPD Test 04/25/2018,01/26/2017,11/11/2015 Surgical History Surgery Date Site/Laterality Comments I&D ABCESS SIMPLE OR SINGLE TOTAL KNEE ARTHROPLASTY PATIENT DENIES LUMBAR SPINE SURGERY N/A SCREWS PLACED PER PATIENT COLONOSCOPY Medical History Medical History Date Comments Asthma 05/04/2017 DX:Asthma Benign essential hypertension 11/15/2017 DX :Benign essential hypertension GERD (gastroesophageal reflux disease) 3 DX:GERD (gastroesophageal reflux disease) Hyperlipidemia 02/14/2018 DX:Hyperlipidemi a Osteopenia 10/25/2017 DX:Osteopenia Other spondylosis with myelo emiliana, cervical region 02/14/2018 DX:Other spondylosis with myelopathy, cervical region; COMMENT: Comments: F/B Dr. Coates Peripheral neuropathy 01/13/2016 DX:Periphe ral neuropathy Prediabetes 10/29/2017 DX:Prediabetes Rheumatoid arthritis ([facility]/ [facility] V24, [facility] V28) 10/14/2017 DX:Rheumatoid arthritis (HCC ) Varicose veins 02/21/2014 DX:Varicose vein s CHF (congestive heart failur e) ([facility] V24, [facility] V28) Diabetes mellitus ([facility] V 24, [facility] V28) Social History Tobacco Use Types Packs/Day Years Used Date Smoking Tobacco: Never Smokeless Tobacco: Never Tobacco Cessation:Counseling Given: Not Answered Alcohol Use Standard Drinks/Week Comments No 0 [...] Orientation Straight 02/28/2025 3: 49 PM EDT Obstetrics History Last Filed Vital Signs Vital Sign Reading Time Taken Comments Blood Pressure 104/60 09/03/2025 2:13 PM EDT Pulse 73 09/03/2025 2:13 PM EDT Temperature 35.7 C (96.2 F) 09/03/2025 2:13 PM EDT Respiratory Rate 14 09/03/2025 2:13 PM EDT Oxygen Saturation 93% 09/03/2025 2:13 PM EDT Inhaled Oxygen Concentration - - Weight 63 kg (138 lb 12.8 oz) 09/03/2025 2:13 PM EDT Height 162.6 cm (5' 4 ) 09/03/2025 2:13 PM EDT Body Mass Index 23.82 09/03/2025 2:13 PM EDT Plan of Treatment Upcoming Encounters Date Type Department Care Team (Late st Contact Info) Description 10/01/2025 9:00 AM EST Office Visit [facility] [address] [place] [phone] Tamera Locke PA [address] [place] [address] 10/29/2025 9:45 AM EST Office Visit Internal Medicine - [place] [address] [facility] [address] [place] [phone] Gay Mccarthy MD [address] [place] [phone] 03/05/2026 8:45 AM EDT Office Visit Pulmonology - [place] [address] [facility] [address] [place] [phone] Danii Cherry MD [address] [place] [phone] Health Maintenance Due Date Last Done Comments COVID-19 Vaccine (#1) 1962 Diabetes: Annual Foot Exam 1967 Diabetes: Annual Retina Eye Exam 1967 DTaP,Tdap,and Td Vaccines (1 - Tdap) 1976 Pneumococcal Vaccine: 50+ Years (1 of 2 - PCV) 1976 Zoster Vaccines (1 of 2) 1976 RSV Immunization Adult Patients (1 - Risk 50-74 years 1-dose series) 2007 Hepatitis C Screening 07/06/2022 Osteoporosis Screening (Bone Density Screening) 07/06/2022 Diabetes: Annual Urine Albumin-Creatinine Ratio (uACR) 07/18/2025 Medicare Annual Wellness Visit 12/06/2025 12/06/2024 Diabetes: Blood Sugar Control Test (HGBA1C) 01/18/2026 07/18/2025, 03/01/2025, 12/06/2024, Additional history exists Social Influencers of Health Screening 2026 2025 Diabetes: Annual GFR (Glomerular Filtration Rate) 07/18/2026 07/18/2025, 05/23/2025, 04/16/2025, Additional history exists Hypertension/CHF/CAD Annual BMP Blood Test 07/18/2026 07/18/2025, 05/23/2025, 04/16/2025, Additional history exists Falls Risk Assessment 08/05/2026 08/05/2025, 022 Breast Cancer Screening 08/30/2026 08/30/20 24, 08/30/2024, 08/17/2023, Additional history exists Cholesterol Screening (Lipid Panel) 02/02/2029 02/03/2024, 02/03/2024 Colorectal Cancer Screening: Colonoscopy 08/05/2035 08/05/2025 Depression Screening Completed 12/06/2024, 03/01/20 Influenza Vaccine Completed 08/01/2025, 08/23/2022 HIB Vaccines Aged Out No longer eligi ble based on patient's age to complete this topic HPV Vaccines Aged Out No longer eligi ble based on patient's age to complete this topic Hepatitis A Vaccines Aged Out No long er eligible based on patient's age to complete this topic Hepatitis B Vaccines Aged Out No long er eligible based on patient's age to complete this topic IPV Vaccines Aged Out No longer eligi ble based on patient's age to complete this topic MMR Vaccines Aged Out No longer eligi ble based on patient's age to complete this topic Meningococcal ACWY Vaccine Aged Out N o longer eligible based on patient's age to complete this topic Meningococcal B Vaccine Aged Out No l onger eligible based on patient's age to complete this topic RSV Immunization Patients Under 20 months Aged Out No longer eligible based on patient's age to complete this topic Varicella Vaccines Aged Out No longer eligible based on patient's age to complete this topic Goals Goal Patient Goal Type Associated Problems Recent Progress Patient-Stated? Author LTG - 8 visits General No Susan Caban, PT Note: Patient reports subjective decrease in low back pain Patient is able to achieve 10 degrees of lumbar extension Slight trigger point to L lumbar multifidi Slight flexibility restriction to L piriformis Patient is independent and compliant with HEP Medical Devices Implanted Type Area Transport Assistant Device Identifier Shelf Expiration Date Model / Serial / Lot Spinal Hardware Spinal Hardware N/A: Spine Lumbar Procedures Procedure Name Priority Date/Time Associated Diagnosis Comments PULMONARY FUNCTION TESTING Routine 09/03/2025 2:04 PM EDT ILD (interstitial lung disease) (CMS/HCC V24, [facility] V28) COLONOSCOPY Routine 08/05/2025 1:41 PM EDT Iron deficiency anemia, unspecified iron deficiency anemia type EGD Routine 08/05/2025 1:41 PM EDT Iron deficiency anemia, unspecified iron deficiency anemia type TISSUE EXAM Routine 08/05/2025 1:40 PM EDT Iron deficiency anemia, unspecified iron deficiency anemia type CBC WITH AUTO DIFFERENTIAL Routine 07/18/2025 10:11 AM EDT Anemia of chronic disease Iron deficiency anemia, unspecified iron deficiency anemia type Stage 3b chronic kidney disease ([facility]/HCC V24, [facility] V28) Rheumatoid arthritis with positive rheumatoid factor, involving unspecified site ([facility]/HCC V24, [facility] V28) HEPATIC FUNCTION PANEL Routine 07/18/2025 10:11 AM EDT Hyperlipidemia, unspecified hyperlipidemia type Rheumatoid arthritis, involving unspecified site, unspecified whether rheumatoid factor present ([facility]/HCC V24, [facility] V28) Type 2 diabetes mellitus without complication, without long-term current use of insulin ([facility] V24, [facility] V28) URIC ACID Routine 07/18/2025 10:11 AM EDT Hyperlipidemia, unspecified hyperlipidemia type Rheumatoid arthritis, involving unspecified site, unspecified whether rheumatoid factor present ([facility]/HCC V24, [facility] V28) Type 2 diabetes mellitus without complication, without long-term current use of insulin ([facility] V24, [facility]/HCC V28) MAGNESIUM Routine 07/18/2025 10:11 AM EDT Hyperlipidemia, unspecified hyperlipidemia type Rheumatoid arthritis, involving unspecified site, unspecified whether rheumatoid factor present ([facility]/HCC V24, CMS/HCC V28) Type 2 diabetes mellitus without complication, without long-term current use of insulin ([facility] V24, CMS/HCC V28) HEMOGLOBIN A1C Routine 07/18/2025 10:11 AM EDT Hyperlipidemia, unspecified hyperlipidemia type Rheumatoid arthritis, involving unspecified site, unspecified whether rheumatoid factor present ([facility]/HCC V24, [facility] V28) Type 2 diabetes mellitus without complication, without long-term current use of insulin ([facility] V24, [facility] V28) THYROID STIMULATING HORMONE Routine 07/18/2025 10:11 AM EDT Hyperlipidemia, unspecified hyperlipidemia type Rheumatoid arthritis, involving unspecified site, unspecified whether rheumatoid factor present (CMS/HCC V24, CMS/HCC V28) Type 2 diabetes mellitus without complication, without long-term current use of insulin (CMS/HCC V24, CMS/HCC V28) IRON AND TIBC Routine 07/18/2025 10:11 AM EDT Anemia of chronic disease Iron deficiency anemia, unspecified iron deficiency anemia type Stage 3b chronic kidney disease (CMS/HCC V24, CMS/HCC V28) Rheumatoid arthritis with positive rheumatoid factor, involving unspecified site (CMS/HCC V24, CMS/HCC V28) FERRITIN Routine 07/18/2025 10:11 AM EDT Anemia of chronic disease Iron deficiency anemia, unspecified iron deficiency anemia type Stage 3b chronic kidney disease (CMS/HCC V24, CMS/HCC V28) Rheumatoid arthritis with positive rheumatoid factor, involving unspecified site (CMS/HCC V24, CMS/HCC V28) BASIC METABOLIC PANEL Routine 07/18/2025 10:11 AM EDT Anemia of chronic disease Iron deficiency anemia, unspecified iron deficiency anemia type Stage 3b chronic kidney disease (CMS/HCC V24, CMS/HCC V28) Rheumatoid arthritis with positive rheumatoid factor, involving unspecified site (CMS/HCC V24, CMS/HCC V28) CBC AND DIFFERENTIAL Routine 07/18/2025 10:11 AM EDT Anemia of chronic disease Iron deficiency anemia, unspecified iron deficiency anemia type Stage 3b chronic kidney disease (CMS/HCC V24, CMS/HCC V28) Rheumatoid arthritis with positive rheumatoid factor, involving unspecified site (CMS/HCC V24, CMS/HCC V28) JAQUELINE SCREENING DIGITAL Routine 08/30/2024 3:57 PM EDT Encounter for screening mammogram for malignant neoplasm of breast HM DEPRESSION SCREENING Routine 03/01/2024 LIPID PANEL Routine 02/03/2024 from Last 3 Months or Most Recently Relevant to Health Maintenance Results * Pulmonary function testing: Carbon Monoxide Diffusing Capacity, Nitrogen Wash Out, Spirometry with Bronchodilator, Vital Capacity Test (09/03/2025 2:04 PM EDT) Impressions Romaine Soriano MD - 09/03/2025 2:04 PM EDT pulmonary function test interpretation. Spirometry done today reveals FEV1 of 1.99 which is 85% of the predicted value, FVC is 3.02 which is 98% of the predicted value, FEV1 to FVC ratio is 87% of the predicted value, there is no bronchodilator response. Flow volume is consistent with normal pattern. Static lung volumes are within normal limits. Diffusion lung capacity is also within normal limits. This study is consistent with normal pulmonary mechanics, however a diagnosis of asthma is not question recommend methacholine challenge test for which clinical correlation is advised. Danii Cherry MD PFT ORDERABLES Final Result * COLONOSCOPY Anesthesia - MAC; [facility] ENDOSCOPY (08/05/2025 1:41 PM EDT) Anatomical Region Laterality Modality Endoscopy 08/05/2025 1:10 PM EDT Impressions 08/05/2025 1:43 PM EDT - The examined portion of the ileum was normal. - Non-bleeding internal hemorrhoids. - The examination was otherwise normal on direct and retroflexion views. - No specimens collected. Recommendation: - Perform an upper GI endoscopy today. - Repeat colonoscopy in 10 years for surveillance. Narrative 08/05/2025 1:43 PM EDT [facility] Patient Name: Kelsey Espinosa Procedure Date: 08/05/2025 1:10 PM Date of : 1955 Age: 70 Room: ROOM 15 Gender: Female Note Status: Finalized Attending MD: Jesse Caruso MD, Procedure Date No Time: 08/05/2025 Procedure: Colonoscopy Indications: Iron deficiency anemia Providers: Jesse Caruso MD Referring MD: Jesse Caruso MD Medicines: Monitored Anesthesia Care Complications: No immediate complications. Estimated Blood Loss: Estimated blood loss: none. Procedure: Pre-Anesthesia Assessment: - ASA Grade Assessment: III - A patient with severe systemic disease. - After reviewing the risks and benefits, the patient was deemed in satisfactory condition to undergo the procedure. After I obtained informed consent, the scope was passed under direct vision. Throughout the procedure, the patient's blood pressure, pulse, and oxygen saturations were monitored continuously.The Colonoscope was introduced through the anus and advanced to the terminal ileum, with identification of the appendiceal orifice and IC valve. The colonoscopy was performed without difficulty. The patient tolerated the procedure well. The quality of the bowel preparation was good. Findings: The terminal ileum appeared normal. Non-bleeding internal hemorrhoids were found during retroflexion. The hemorrhoids were small. The exam was otherwise without abnormality on direct and retroflexion views. Procedure Code(s): --- Professional --- 27286, Colonoscopy, flexible; diagnostic, including collection of specimen(s) by brushing or washing, when performed (separate procedure) Diagnosis Code(s): --- Professional --- D50.9, Iron deficiency anemia, unspecified CPT copyright 2020 [employer]. All rights reserved. The codes documented in this report are preliminary and upon kiln placer review may be revised to meet current compliance requirements. Jesse Caruso MD 08/05/2025 1:43:09 PM This report has been signed electronically.Jesse Caruso MD Number of Addenda: 0 Note Initiated On: 08/05/2025 1:10 PM Scope In: Scope Out: Endoscopy Department at [facility] - [address] [place] [id number] Procedure Note Jesse Caruso MD - 08/05/2025 [facility] Patient Name: Kelsey Espinosa Procedure Date: 08/05/2025 1:10 PM Date of : 1955 Age: 70 Room: ROOM 15 Gender: Female Note Status: Finalized Attending MD: Jesse Caruso MD, Procedure Date No Time: 08/05/2025 Procedure: Colonoscopy Indications: Iron deficiency anemia Providers: Jesse Caruso MD Referring MD: Jesse Caruso MD Medicines: Monitored Anesthesia Care Complications: No immediate complications. Estimated Blood Loss: Estimated blood loss: none. Procedure: Pre-Anesthesia Assessment: - ASA Grade Assessment: III - A patient with severe systemic disease. - After reviewing the risks and benefits, thepatient was deemed in satisfactory condition to undergo the procedure. After I obtained informed consent, the scope was passed under direct vision. Throughout theprocedure, the patient's blood pressure, pulse, and oxygen saturations were monitored continuously.The Colonoscope was introduced through the anus and advanced to the terminal ileum, with identificationof the appendiceal orifice and IC valve. Thecolonoscopy was performed without difficulty. The patient tolerated the procedure well. The quality of thebowel preparation was good. Findings: The terminal ileum appeared normal. Non-bleeding internal hemorrhoids were found during retroflexion. The hemorrhoids were small. The exam was otherwise without abnormality ondirect and retroflexion views. Procedure Code(s): --- Professional --- 90599, Colonoscopy, flexible; diagnostic, including collection of specimen(s) by brushing or washing,when performed (separate procedure) Diagnosis Code(s): --- Professional --- D50.9, Iron deficiency anemia, unspecified CPT copyright 2020 [employer]. All rights reserved. The codes documented in this report are preliminary and upon kiln placer reviewmay be revised to meet current compliance requirements. Jesse Caruso MD 08/05/2025 1:43:09 PM This report has been signed electronically.Jesse Caruso MD Number of Addenda: 0 Note Initiated On: 08/05/2025 1:10 PM Scope In: Scope Out: Endoscopy Department at [facility] - [address] [place] [phone] IMPRESSION: - The examined portion of the ileum was normal. - Non-bleeding internal hemorrhoids. - The examination was otherwise normal on directand retroflexion views. - No specimens collected. Recommendation: - Perform an upper GI endoscopy today. - Repeat colonoscopy in 10 years forsurveillance. us Jesse Caruso MD GI~PROCEDURE ORDERABLES Final Result * EGD Anesthesia - MAC; [facility] ENDOSCOPY (08/05/2025 1:41 PM EDT) Anatomical Region Laterality Modality Endoscopy 08/05/2025 1:09 PM EDT Impressions 08/05/2025 1:44 PM EDT - Z-line regular, 38 cm from the incisors. - Normal esophagus. - Normal stomach. - Normal examined duodenum. Biopsied. Recommendation: - Discharge patient to home. - Resume previous diet. - Continue present medications. - Await pathology results. - To visualize the small bowel, perform video capsule endoscopy after studies are complete. - Return to GI clinic PRN. Narrative 08/05/2025 1:44 PM EDT [facility] Patient Name: Kelsey Espinosa Procedure Date: 08/05/2025 1:09 PM Date of : 1955 Age: 70 Room: ROOM 15 Gender: Female Note Status: Finalized Attending MD: Jesse Caruso MD, Procedure Date No Time: 08/05/2025 Procedure: Upper GI endoscopy Indications: Gastro-esophageal reflux disease Providers: Jesse Caruso MD Referring MD: Jesse Caruso MD Medicines: Monitored Anesthesia Care Complications: No immediate complications. Estimated Blood Loss: Estimated blood loss: none. Procedure: Pre-Anesthesia Assessment: - ASA Grade Assessment: III - A patient with severe systemic disease. - After reviewing the risks and benefits, the patient was deemed in satisfactory condition to undergo the procedure. After obtaining informed consent, the endoscope was passed under direct vision. Throughout the procedure, the patient's blood pressure, pulse, and oxygen saturations were monitored continuously.The Endoscope was introduced through the mouth, and advanced to the third part of duodenum. The upper GI endoscopy was accomplished without difficulty. The patient tolerated the procedure well. Findings: The Z-line was regular and was found 38 cm from the incisors. The esophagus was normal. The stomach was normal. The examined duodenum was normal. Biopsies were taken with a cold forceps for histology. Estimated blood loss was minimal. Procedure Code(s): --- Professional --- 43407, Esophagogastroduodenoscopy, flexible, transoral; with biopsy, single or multiple Diagnosis Code(s): --- Professional --- K21.9, Gastro-esophageal reflux disease without esophagitis CPT copyright 2020 [employer]. All rights reserved. The codes documented in this report are preliminary and upon kiln placer review may be revised to meet current compliance requirements. Jesse Caruso MD 08/05/2025 1:44:41 PM This report has been signed electronically.Jesse aCruso MD Number of Addenda: 0 Note Initiated On: 08/05/2025 1:09 PM Scope In: Scope Out: Endoscopy Department at [facility] - [address] [place] [phone] Procedure Note Jesse Caruso MD - 08/05/2025 [facility] Patient Name: Kelsey Espinosa Procedure Date: 08/05/2025 1:09 PM Date of : 1955 Age: 70 Room: ROOM 15 Gender: Female Note Status: Finalized Attending MD: Jesse Caruso MD, Procedure Date No Time: 08/05/2025 Procedure: Upper GI endoscopy Indications: Gastro-esophageal reflux disease Providers: Jesse Caruso MD Referring MD: Jesse Caruso MD Medicines: Monitored Anesthesia Care Complications: No immediate complications. Estimated Blood Loss: Estimated blood loss: none. Procedure: Pre-Anesthesia Assessment: - ASA Grade Assessment: III - A patient with severe systemic disease. - After reviewing the risks and benefits, thepatient was deemed in satisfactory condition to undergo the procedure. After obtaining informed consent, the endoscope was passed under direct vision. Throughout theprocedure, the patient's blood pressure, pulse, and oxygen saturations were monitored continuously.TheEndoscope was introduced through the mouth, and advanced tothe third part of duodenum. The upper GI endoscopy was accomplished without difficulty. The patienttolerated the procedure well. Findings: The Z-line was regular and was found 38 cm from the incisors. The esophagus was normal. The stomach was normal. The examined duodenum was normal. Biopsies weretaken with a cold forceps for histology. Estimated blood loss was minimal. Procedure Code(s): --- Professional --- 20293, Esophagogastroduodenoscopy, flexible, transoral; with biopsy, single or multiple Diagnosis Code(s): --- Professional --- K21.9, Gastro-esophageal reflux disease without esophagitis CPT copyright 2020 [employer]. All rights reserved. The codes documented in this report are preliminary and upon kiln placer reviewmay be revised to meet current compliance requirements. Jesse Caruso MD 08/05/2025 1:44:41 PM This report has been signed electronically.Jesse Caruso MD Number of Addenda: 0 Note Initiated On: 08/05/2025 1:09 PM Scope In: Scope Out: Endoscopy Department at [facility] - [address] [place] [phone] IMPRESSION: - Z-line regular, 38 cm from the incisors. - Normal esophagus. - Normal stomach. - Normal examined duodenum. Biopsied. Recommendation: - Discharge patient to home. - Resume previous diet. - Continue present medications. - Await pathology results. - To visualize the small bowel, perform videocapsule endoscopy after studies are complete. - Return to GI clinic PRN. us Jesse Caruso MD GI~PROCEDURE ORDERABLES Final Result * Tissue exam (08/05/2025 1:40 PM EDT) Final Diagnosis A. Small Intestine, Duodenum, biopsies: - Duodenal mucosa with preserved villi and no specific pathologic changes. - Negative for increased intraepithelial lymphocytes. 08/06/2025 10:18 AM EDT [facility] Gross Description A. Small Intestine, Duodenum, biopsies: Labeled duodenum biopsy . Received in formalin are four irregular mejia mucosal tissue fragments, each measuring approximately 0.2 cm in greatest dimension, which are wrapped in paper and submitted in toto in one cassette, four pieces, multiple levels on one side. REX 08/06/2025 10:18 AM EDT [facility] Disclaimer Unless otherwise specified, all tissue is 10% NB formalin fixed and paraffin embedded. 08/06/2025 10:18 AM EDT [facility] Tissue Duodenal structure / Unknown 08/05/2025 1:40 PM EDT 08/05/2025 2:42 PM EDT Jesse Caruso MD LAB PATHOLOGY ORDERABLES Tiffanie l Result [facility] [address] [place] [address], [place] [phone] * (ABNORMAL) CBC auto differential (07/18/2025 10:11 AM EDT) WBC 7.6 4.8 - 10.8 K/mcL LAB HEMETOLOGY METHOD 07/18/2025 2:09 PM EDT [facility] RBC 4.90(H) 3.80 - 4.80 M/mcL LAB HEMETOLOGY METHOD 07/18/2025 2:09 PM EDT [facility] Hemoglobin 14.8 11.5 - 16.0 g/dL LAB HEMETOLOGY METHOD 07/18/2025 2:09 PM EDT [facility] Hematocrit 46.1 35.0 - 47.0 % LAB HEMETOLOGY METHOD 07/18/2025 2:09 PM EDT [facility] MCV 95.1 79.0 - 98.0 FL LAB HEMETOLOGY METHOD 07/18/2025 2:09 PM EDT [facility] MCH 30.5 27.0 - 32.0 pcg LAB HEMETOLOGY METHOD 07/18/2025 2:09 PM EDT [facility] MCHC 32.1 32.0 - 37.0 g/dL LAB H[facility]ETOLOGY [facility] RDW 14.6 11.0 - 15.0 % LAB HEMETOLOGY METHOD 07/18/2025 2:09 PM EDT [facility] Platelets 240 130 - 400 K/mcL LAB HEMETOLOGY METHOD 07/18/2025 2:09 PM [facility] MPV 10.0 7.0 - 11.0 FL LAB HEMETOLOGY METHOD 07/18/2025 2:09 PM [facility] NRBC 0.0 <1.0 % LAB HEMETOLOGY METHOD 07/18/2025 2:09 PM [facility] NRBC Absolute 0.00 <0.10 K/mcL LAB HEMETOLOGY METHOD 07/18/2025 2:09 PM [facility] Neutrophils Relative 52.7 % LAB HEMETOLOGY METHOD 07/18/2025 2:09 PM [facility] Lymphocytes Relative 35.8 % LAB HEMETOLOGY METHOD 07/18/2025 2:09 PM [facility] Monocytes Relative 10.3 % LAB HEMETOLOGY METHOD 07/18/2025 2:09 PM [facility] Eosinophils Relative 0.4 % LAB HEMETOLOGY METHOD 07/18/2025 2:09 PM [facility] Basophils Relative 0.4 % LAB HEMETOLOGY METHOD 07/18/2025 2:09 PM [facility] Immature Granulocytes Relative 0.4 % LAB HEMETOLOGY METHOD 07/18/2025 2:09 PM [facility] Neutrophils Absolute 4.00 1.50 - 7.00 K/mcL LAB HEMETOLOGY METHOD 07/18/2025 2:09 PM [facility] Lymphocytes Absolute 2.72 1.00 - 5.00 K/mcL LAB HEMETOLOGY METHOD 07/18/2025 2:09 PM [facility] Monocytes Absolute 0.78 0.20 - 1.00 K/mcL LAB HEMETOLOGY METHOD 07/18/2025 2:09 PM [facility] Eosinophils Absolute 0.03 0.00 - 0.50 K/[facility] HEMETOLOGY METHOD 07/18/2025 2:09 PM EDT [facility] Basophils Absolute 0.03 0.00 - 0.20 K/[facility] HEMETOLOGY METHOD 07/18/2025 2:09 PM EDT [facility] Immature Granulocytes Absolute 0.03 0.00 - 0.03 K/[facility] HEMETOLOGY METHOD 07/18/2025 2:09 PM EDT [facility] Blood Venous blood specimen / Unknown Venipuncture / Unknown 07/18/2025 10:11 AM EDT 07/18/2025 10:11 AM EDT us Tamera MARTINEZ LAB BLOOD ORDERABLES Final Re sult Performing Organization Address City/[facility]/ZIP Co de Phone Number [facility] [address] [place] [address], [place] [phone] * Iron and TIBC (07/18/2025 10:11 AM EDT) Iron 90 40 - 150 mcg/dL LAB CHEMISTRY METHOD 07/18/2025 3:46 PM EDT [facility] TIBC 317 250 - 450 mcg/dL LAB CHEMISTRY METHOD 07/18/2025 3:46 PM EDT [facility] Iron Saturation 28 15 - 50 % LAB CHEMISTRY METHOD 07/18/2025 3:46 PM EDT [facility] Blood Venous blood specimen / Unknown Venipuncture / Unknown 07/18/2025 10:11 AM EDT 07/18/2025 10:11 AM EDT Tamera MARTINEZ LAB BLOOD ORDERABLES Final Re sult [facility] [address] [place] [address], [place] [phone] * Uric acid (07/18/2025 10:11 AM EDT) Uric Acid 6.6 3.1 - 7.8 mg/dL LAB CHEMISTRY METHOD 07/18/2025 3:46 PM EDT [facility] Blood Venous blood specimen / Unknown Venipuncture / Unknown 07/18/2025 10:11 AM EDT 07/18/2025 10:11 AM EDT Gay Mccarthy MD LAB BLOOD ORDERABLES Final Res ult [facility] [address] [place] [address], [place] [phone] * Thyroid stimulating hormone (07/18/2025 10:11 AM EDT) TSH 0.95 0.40 - 4.00 mcIU/mL LAB CHEMISTRY METHOD 07/18/2025 4:31 PM EDT [facility] Blood Venous blood specimen / Unknown Venipuncture / Unknown 07/18/2025 10:11 AM EDT 07/18/2025 10:11 AM EDT Gay Mccarthy MD LAB BLOOD ORDERABLES Final Res ult [facility] [address] [place] [address], [place] [phone] * Magnesium (07/18/2025 10:11 AM EDT) Magnesium 2.4 1.9 - 2.6 mg/dL LAB CHEMISTRY METHOD 07/18/2025 3:46 PM EDT [facility] Blood Venous blood specimen / Unknown Venipuncture / Unknown 07/18/2025 10:11 AM EDT 07/18/2025 10:11 AM EDT Gay Mccarthy MD LAB BLOOD ORDERABLES Final Res ult [facility] [address] [place] [address], [place] [phone] * (ABNORMAL) Hemoglobin A1c (07/18/2025 10:11 AM EDT) [facility] Hemoglobin A1C 6.7(H) <6.5 % LAB CHEMISTRY METHOD 07/18/2025 6:02 PM EDT [facility] Mean Bld Glu Estim. 146 mg/dL LAB CHEMISTRY METHOD 07/18/2025 6:02 PM EDT [facility] Blood Venous blood specimen / Unknown Venipuncture / Unknown 07/18/2025 10:11 AM EDT 07/18/2025 10:11 AM EDT us Gay Mccarthy MD LAB BLOOD ORDERABLES Final Res ult Performing Organization Address City/[facility]/ZIP Co de Phone Number [facility] [address] [place] [address], [place] [phone] * Ferritin (07/18/2025 10:11 AM EDT) [facility] Ferritin 80 8 - 252 ng/mL LAB CHEMISTRY METHOD 07/18/2025 3:47 PM EDT [facility] Blood Venous blood specimen / Unknown Venipuncture / Unknown 07/18/2025 10:11 AM EDT 07/18/2025 10:11 AM EDT us Tamera MARTINEZ LAB BLOOD ORDERABLES Final Re sult [facility] [address] [place] [address], [place] [phone] * Hepatic function panel (07/18/2025 10:11 AM EDT) [facility] Total Protein 7.9 6.0 - 8.0 g/dL LAB CHEMISTRY METHOD 07/18/2025 3:51 PM EDT [facility] Albumin 3.9 3.2 - 5.0 g/dL LAB CHEMISTRY METHOD 07/18/2025 3:51 PM EDT [facility] Total Bilirubin 0.7 0.0 - 1.4 mg/dL LAB CHEMISTRY METHOD 07/18/2025 3:51 PM EDT [facility] Bilirubin, Direct 0.1 0.0 - 0.3 mg/dL LAB CHEMISTRY METHOD 07/18/2025 3:51 PM EDT [facility] Bilirubin, Indirect 0.6 0.0 - 1.1 mg/dL LAB CHEMISTRY METHOD 07/18/2025 3:51 PM EDT [facility] ALT (SGPT) 35 10 - 60 unit/L LAB CHEMISTRY METHOD 07/18/2025 3:51 PM EDT [facility] AST (SGOT) 35 10 - 42 unit/L LAB CHEMISTRY METHOD 07/18/2025 3:51 PM EDT [facility] Alkaline Phosphatase 66 42 - 121 unit/L LAB CHEMISTRY METHOD 07/18/2025 3:51 PM T [facility] Blood Venous blood specimen / Unknown Venipuncture / Unknown 07/18/2025 10:11 AM EDT 07/18/2025 10:11 AM EDT us Gay Mccarthy MD LAB BLOOD ORDERABLES Final Res ult [facility] [address] [place] [address], * Basic metabolic panel (07/18/2025 10:11 AM EDT) [facility] Sodium 139 133 - 145 mmol/L LAB CHEMISTRY METHOD 07/18/2025 3:46 PM EDT [facility] Potassium 4.8 3.5 - 5.5 mmol/L LAB CHEMISTRY METHOD 07/18/2025 3:46 PM [facility] Chloride 103 96 - 110 mmol/L LAB CHEMISTRY METHOD 07/18/2025 3:46 PM [facility] CO2 32 21 - 32 mmol/L LAB CHEMISTRY METHOD 07/18/2025 3:46 PM [facility] Anion Gap 4 3 - 11 LAB CHEMISTRY METHOD 07/18/2025 3:46 PM T [facility] Glucose 97 70 - 100 mg/dL LAB CHEMISTRY METHOD 07/18/2025 3:46 PM [facility] BUN 15 5 - 25 mg/dL LAB CHEMISTRY METHOD 07/18/2025 3:46 PM [facility] Creatinine 0.87 0.50 - 1.10 mg/dL LAB CHEMISTRY METHOD 07/18/2025 3:46 PM [facility] eGFR 73 >=60 mL/min/1. 73m2 LAB CHEMISTRY METHOD 07/18/2025 3:46 PM [facility] Comment:Calculation based on the Chronic Kidney Disease Epidemiology Collaboration (CKD-EPI) equation refit without adjustment for race. BUN/Creatinine Ratio 17.2 LAB CHEMISTRY METHOD 07/18/2025 3:46 PM [facility] Calcium 9.4 8.5 - 10.5 mg/dL LAB CHEMISTRY METHOD 07/18/2025 3:46 PM T [facility] Blood Venous blood specimen / Unknown Venipuncture / Unknown 07/18/2025 10:11 AM EDT 07/18/2025 10:11 AM EDT us Tamera MARTINEZ LAB BLOOD ORDERABLES Final Re sult [facility] [address] [place] [address], * JAQUELINE SCREENING DIGITAL (08/30/2024 3:57 PM EDT) Anatomical Region Laterality Modality Mammography 08/30/2024 8:22 AM EDT Narrative 08/30/2024 3:57 PM EDT [facility] Diagnostic Imaging Department [address] [place] [id number] Patient: JESÚSKELSEY /Age/Sex: 1955 - 69 - F Unit#: [id number] Location/Status: SPDIMA/REG CLI Mnemonic/Ordering Site: [facility] Ordering Physician: GAY MCCARTHY MD [facility] Screening Digital - 08/30/2438 Report Status:Signed EXAM: [facility] Screening Digital EXAM DATE AND TIME: 08/30/2024 8:38 AM HISTORY: Screening. COMPARISON: 08/17/23, 03/08/22, 10/16/19 TECHNIQUE: Bilateral digital breast tomosynthesis was performed in the CC and MLO projections. Computer aided detection with [employer] 3D 3.1 was employed. TISSUE DENSITY: c. The breasts are heterogeneously dense, which may obscure small masses. FINDINGS: No suspicious masses, grouped microcalcifications, or areas of architectural distortion are seen. Vascular calcification is present. The skin is unrema rkable. IMPRESSION: Stable mammographic appearance of the breasts. No evidence of malignancy is seen. A negative mammogram in the presence of a clinically suspicious palpable abnormality does not preclude the possibility of malignancy or alter the indications for biopsy. BI-RADS: Category 2: Benign RECOMMENDATION(S): 1: Routine screening mammogram BILATERAL in 1 year. [facility] performed at [facility] [address] [place] [address] Dictating Physician: CHARLEEN BRANDON MD Electronically Signed by: CHARLEEN BRANDON MD Dic Date/Time: 08/30/241556 Sign date/Time: 08/30/241556 Procedure Note Charleen Brandon MD - 09/25/2024 [facility] Diagnostic Imaging Department [address] [place] [address] Patient: KELSEY ESPINOSA /Age/Sex: 1955 - 69 - F Unit#: [id number] [facility]Ordering Site: [facility] Ordering Physician: GAY MCCARTHY MD [facility] Screening Digital - 08/30/24 - 0838 Report Status:Signed EXAM: [facility] Screening Digital EXAM DATE AND TIME: 08/30/2024 8:38 AM HISTORY: Screening. COMPARISON: 08/17/23, 03/08/22, 10/16/19 TECHNIQUE: Bilateral digital breast tomosynthesis was performed in the CCand MLO projections. Computer aided detection with [employer] 3D 3.1was employed. TISSUE DENSITY: c. The breasts are heterogeneously dense, which mayobscure small masses. FINDINGS: No suspicious masses, grouped microcalcifications, or areas ofarchitectural distortion are seen. Vascular calcification is present. The skin isunrema rkable. IMPRESSION: Stable mammographic appearance of the breasts. No evidence of malignancyis seen. A negative mammogram in the presence of a clinically suspicious palpable abnormality does not preclude the possibility of malignancy or alter the indications for biopsy. BI-RADS: Category 2: Benign RECOMMENDATION(S): 1: Routine screening mammogram BILATERAL in 1 year. Mammogram performed at [facility] at [address] [address] Dictating Physician: CHARLEEN BRANDON MD Electronically Signed by: CHARLEEN BRANDON MD Dic Date/Time: 08/30/241556 Sign date/Time: 08/30/241556 Gay Mccarthy MD IMG BI PROCEDURES Final Result * Depression Screening (03/01/2024) Depression Screening Abstracted Historical Provider HEALTH MAINTENANCE Final Result * (ABNORMAL) Lipid panel (02/03/2024) LDL/HDL Ratio 2 0 - 4 Triglycerides 193(A) 0 - 150 mg/dL Cholesterol 158 0 - 200 mg/dL HDL 76 >=40 mg/dL LDL Cholesterol 44 0 - 100 mg/dL Blood Venous blood specimen / Unknown Result [facility] Historical Provider LAB BLOOD ORDERABLES Tiffanie l Result from Last 3 Months or Most Recently Relevant to Health Maintenance Insurance [facility] MEDICARE Member Subscriber Plan / Payer (Ef fective 2022-Present) Name:Kelsey Espinosa Relation to Subscriber:Self Name:Kelsey Espinosa Payer ID:[id number] Group ID:[id number] Type:Not on file Address: [address] [place] [address] Advance Directives * Full Code - Default (Latest Code Status on File) Date Activated Date Inactivated Comments 04/05/2025 5:09 PM 2025 6:10 PM This is order is used when code status has not been discussed with the patient, or code status is otherwise unknown/unconfirmed To update the patient's code status, place a code status order. Do not modify or discontinue any currently active code status orders. * Full Code - Default Date Activated Date Inactivated Comments 03/01/2025 12:54 PM 03/05/2025 5:03 PM This is order is used when code status has not been discussed with the patient, or code status is otherwise unknown/unconfirmed To update the patient's code status, place a code status order. Do not modify or discontinue any currently active code status orders. * Full Code - Default Date Activated Date Inactivated Comments 02/28/2025 7:06 PM 03/01/2025 12:54 PM This is order is used when code status has not been discussed with the patient, or code status is otherwise unknown/unconfirmed To update the patient's code status, place a code status order. Do not modify or discontinue any currently active code status orders. Care Teams Photographic Editor Relationship Specialty Start Date End Date Gay Mccarthy MD [address] [place] [phone] PCP - General Internal Medicine 11/07/14
--- OUTSIDE RECORDS SUMMARY | 2025-09-24 10:11 | XMS_ITS ---
Author Name [facility] Organization Unknown Care Team Organization Name Specialty Phone Email Start Date End Da michelle [facility] Primary [facility] 10/05/2022 07/16/20 24
== END 2025-09-24 09:05 | disposition home or self-care (01) ==
LOC: HO.NEURO 09:04
PROVIDERS: PCP Internal Medicine; Visit Provider Internal Medicine Rheumatology
DX: M79.642 Pain in left hand (principal); M25.532 Pain in left wrist; R20.0 Anesthesia of skin
CPT/HCPCS: 95886; 95910

== ENCOUNTER → 2025-09-24 09:15 | Outpatient (BNV) | payer OTHER, SELFPAY | PROVIDERS: PCP Internal Medicine; Visit Provider Psychiatry & Neurology Neurology | DX: G56.02 Carpal tunnel syndrome, left upper limb (principal); G62.89 Other specified polyneuropathies | CPT/HCPCS: 95886; 95909 ==